=== PATIENT | male | born 2005 | race Two or more races ===

== ENCOUNTER 2025-04-15 23:42 | Emergency (ER) | payer BC ==
[~2025-04-15] VITALS: Ht 180.3 cm; Wt 81.6 kg
[2025-04-16 02:06] VITALS: BP 127/85; TEMP 98.3; O2SAT 96
== END 2025-04-16 02:06 | disposition home or self-care (01) ==
LOC: EDUNIT# 23:42 → ER 23:57
DX: S62.636A Displaced fracture of distal phalanx of right little finger, initial encounter for closed fracture (principal); Z60.2 Problems related to living alone; X58.XXXA Exposure to other specified factors, initial encounter; Y93.9 Activity, unspecified; Y92.89 Other specified places as the place of occurrence of the external cause; Y99.8 Other external cause status
CPT/HCPCS: 73140-TC

== ENCOUNTER 2025-05-05 03:45 | Emergency (ER) | payer BC ==
[~2025-05-05] VITALS: Ht 180.3 cm; Wt 81.6 kg
[2025-05-05] MEDS ORDERED: ONDANSETRON 4 MG TAB.RAPDIS ONE (04:20)
[2025-05-05] MEDS ORDERED: HYDROMORPHONE 1 MG/1 ML DISP.SYRIN ONE (04:20)
[2025-05-05] MEDS: ONDANSETRON 4 MG TAB.RAPDIS PO ONE (04:24)
[2025-05-05] MEDS: HYDROMORPHONE 1 MG/1 ML DISP.SYRIN IM ONE (04:24)
[2025-05-05] MEDS ORDERED: KETO10TA2 PO (05:55)
[2025-05-05 06:36] VITALS: BP 130/80; TEMP 98; O2SAT 99
== END 2025-05-05 06:44 | disposition home or self-care (01) ==
LOC: ER 03:50
DX: S69.81XA Other specified injuries of right wrist, hand and finger(s), initial encounter (principal); Z87.19 Personal history of other diseases of the digestive system; Y04.0XXA Assault by unarmed brawl or fight, initial encounter; Y93.89 Activity, other specified; Y92.89 Other specified places as the place of occurrence of the external cause; Y99.8 Other external cause status
CPT/HCPCS: 29125; 73130; 73200; 96372; 99285; J1171; Q0162

== ENCOUNTER 2025-05-16 21:11 | Emergency (ER) | payer BC ==
[~2025-05-16] VITALS: Ht 180.3 cm; Wt 81.6 kg
[~2025-05-16 21:11] MED LIST: KETO10TA2 PO
[2025-05-16 22:11] VITALS: BP 117/76; TEMP 98
[2025-05-16] MEDS ORDERED: LIDOCAINE 1%-EPI 1:100,000 20 ML VIAL ONE (22:24)
[2025-05-16] MEDS ORDERED: TDAP [DIPH/PERTUSSIS/TET] 0.5 ML VIAL IM ONE ×2 (22:25→22:30)
[2025-05-16] MEDS ORDERED: LIDOCAINE 1%-EPI 1:100,000 50 ML VIAL IJ ONE (22:30)
[2025-05-16 23:00] VITALS: O2SAT 99
== END 2025-05-16 23:06 | disposition home or self-care (01) ==
LOC: ER 21:11
DX: S01.81XA Laceration without foreign body of other part of head, initial encounter (principal); W22.8XXA Striking against or struck by other objects, initial encounter; Y93.89 Activity, other specified; Y92.89 Other specified places as the place of occurrence of the external cause; Y99.8 Other external cause status
CPT/HCPCS: 12013; 90471; 90715; 99283; J3490

== ENCOUNTER 2025-07-02 05:11 | Emergency (ER) | payer BC ==
[~2025-07-02] VITALS: Ht 180.3 cm; Wt 81.6 kg
[2025-07-02] MEDS ORDERED: AMOX-427 PO (06:15)
[2025-07-02 07:24] VITALS: BP 121/65; TEMP 98.2; O2SAT 96
== END 2025-07-02 07:25 | disposition home or self-care (01) ==
LOC: ER 05:14
DX: S60.412A Abrasion of right middle finger, initial encounter (principal); Z86.19 Personal history of other infectious and parasitic diseases; W50.3XXA Accidental bite by another person, initial encounter; Y93.89 Activity, other specified; Y92.89 Other specified places as the place of occurrence of the external cause; Y99.9 Unspecified external cause status

== ENCOUNTER 2025-07-08 17:46 | Emergency (ER) | payer BC ==
[~2025-07-08] VITALS: Ht 180.3 cm; Wt 81.6 kg
[~2025-07-08 17:46] MED LIST changes: +AMOX-427 PO
[2025-07-08] MEDS ORDERED: IBUPROFEN 400 MG TABLET ONE (18:15)
[2025-07-08] MEDS ORDERED: ONDANSETRON 4 MG TAB.RAPDIS ONE (18:15)
[2025-07-08] MEDS: ONDANSETRON 4 MG TAB.RAPDIS SL ONE (18:19)
[2025-07-08] MEDS: IBUPROFEN 400 MG TABLET PO ONE (18:19)
[2025-07-08] MEDS: IV NS 0.9% 1,000 ML BAG IV ONE (18:48)
[2025-07-08] MEDS ORDERED: ONDANSETRON HCL/PF 4 MG/2 ML VIAL ONE (18:50)
[2025-07-08] MEDS ORDERED: KETOROLAC TROMETHAMINE 15 MG/ML VIAL ONE (18:50)
[2025-07-08 18:52] LABS: PLATELET COUNT (AUTO) 337 K/uL (150-450); RED BLOOD CELL COUNT(AUTO) 4.89 MIL/uL (4.5-6.0); RED CELL DISTRIBUTION WIDTH 13.8 % (11.5-15.0); WHITE BLOOD COUNT (AUTO) 8.2 K/uL (4.3-11.0)
[2025-07-08] MEDS: ONDANSETRON HCL/PF - ER 4 MG/2 ML VIAL IV ONE (18:52)
[2025-07-08] MEDS: KETOROLAC TROMETHAMINE 15 MG/ML VIAL IV ONE (18:55)
[2025-07-08 19:02] LABS: CALCIUM, SERUM 8.3 mg/dL (8.5-10.1); CREATININE 0.9 mg/dL (0.6-1.3); SODIUM SERUM 137.0 mmol/L (136-145); UREA NITROGEN, BLOOD 17.0 mg/dL (7-18)
[2025-07-08] MEDS ORDERED: NALO4SPR BNOSTRILS (19:42)
[2025-07-08 21:51] VITALS: BP 124/71; TEMP 98.8; O2SAT 97
== END 2025-07-08 21:52 | disposition home or self-care (01) ==
LOC: ER 17:55
DX: F19.10 Other psychoactive substance abuse, uncomplicated (principal); R51.9 Headache, unspecified; Z86.19 Personal history of other infectious and parasitic diseases
CPT/HCPCS: 99284; 96374; 96375; 96361; 96376; 85025; 80048; 36415; J1885; J2405 ×2; J7030; Q0162